=== PATIENT | male | born 1980 | race Hispanic/Latino ===

== ENCOUNTER → 2017-07-05 | Day surgery (SDC) | payer OTHER ==
[~2017-07-05] MED LIST: DICYCLOMINE HCL20 MG PO; FENTANYL CITRATE/PF 100MCG/2 ML INJ ONE; HYOSCYAMINE SULFATE 0.5 MG/ML AMP ONE; LIDOCAINE HCL 1% 2 ML AMP ONE; LIDOCAINE HCL 2% LOCAL INJ 5 ML SDV VIAL INJ ONE; METOPROLOL SUCC50 MG PO; MIDAZOLAM HCL 2 MG/2 ML VIAL ONE; OMEPRAZOLE40 MG; PROPOFOL IV EMULSION 10 MG/ML 50 ML VIAL ONE
[2017-07-05 13:59] LABS: WBC,FECAL (FECAL LACTOFERRIN) NEGATIVE (NEGATIVE)
[2017-07-05 14:59] LABS: C DIFFICILE TOXIN A&B AMP PROB NEGATIVE (NEGATIVE)
--- NOTE | 2017-07-05 19:47 | Operative Report ---
DATE OF PROCEDURE: July 05, 2017 REFERRING PHYSICIAN: Dr. Levy Arreaga. PROCEDURES PERFORMED 1. Esophagogastroduodenoscopy with biopsies. 2. Colonoscopy with polypectomy and biopsies. INDICATIONS FOR EGD: Heartburn, indigestion. History of melena. INDICATIONS FOR COLONOSCOPY: Chronic diarrhea. History of bright red blood per rectum. MEDICATION: Patient was done under MAC. Please see anesthesiologist's note. PROCEDURE: With the patient in the left lateral decubitus position, the flexible fiberoptic Olympus gastroscope was introduced into the esophagus under direct visualization without any difficulty. There was some patchy erythema noted in the distal esophagus. A minute nodule was noted at the GE junction, approximately 4 mm in size, and that was biopsied. The scope was then advanced with ease into the stomach, traversing a small sliding hiatal hernia. Mucosa overlying the antrum and the body revealed some patchy erythema and mild to moderate edema, and biopsies were obtained and sent to stain for H. pylori. The pylorus was of normal contour and shape. It was intubated with ease, and the scope was advanced all the way to the 2nd portion of the duodenum. The scope was then withdrawn slowly, and biopsies were obtained from the proximal 2nd portion to rule out sprue considering the patient's history of chronic diarrhea. Mucosa overlying the duodenal bulb appeared to be within normal limits. The scope was then withdrawn back into the stomach and retroflexed, and mucosa overlying the fundus and the cardia appeared to be within normal limits. The scope was then straightened out. The stomach was decompressed. Scope was subsequently withdrawn. Patient tolerated the procedure well. IMPRESSION 1. Distal esophagitis. 2. Nodule at gastroesophageal junction, biopsied. 3. Small sliding hiatal hernia. 4. Gastritis, biopsied. Biopsy sent to stain for H. pylori. 5. Rule out sprue. PLAN: Follow up histology. Increase Protonix to 40 mg 1 p.o. a.c. b.i.d. The patient was then turned around. After adequate lubrication of the anal canal, a flexible fiberoptic Olympus colonoscope was inserted into the rectum with ease and advanced all the way to the cecum. A minute polyp was noted in the cecum, and that was hot biopsied. Polypectomy site was hemoclipped. The ileocecal valve was intubated with ease, and the scope was advanced into the terminal ileum. Biopsies were obtained. The scope was then withdrawn slowly back into the colon and then pulled slowly. The ascending colon and transverse colon grossly appeared to be within normal limits. There were some patchy mild inflammatory changes noted in the left colon. Multiple random biopsies were obtained. A large pedunculated polyp was noted in the proximal sigmoid colon, and that was removed per snare electrocautery and the polypectomy site was prophylactically hemoclipped. One minute polyp was hot biopsied from the distal sigmoid colon. One polyp was hot biopsied from the rectum. The scope was then retroflexed into the distal rectum. Small internal hemorrhoids were noted, none of which was actively bleeding. The scope was then straightened out. The rectosigmoid area as well as the distal rectal area were decompressed. Scope was subsequently withdrawn after securing an adequate stool specimen that was sent for the appropriate stool studies. Patient tolerated the procedure well. IMPRESSION 1. Cecal polyp, hot biopsied. Polypectomy site hemoclipped. 2. Mild, patchy, left-sided colitis, random biopsies obtained. 3. Large pedunculated polyp, sigmoid colon, snared. Polypectomy site prophylactically hemoclipped. 4. Sigmoid colon polyp, minute, hot biopsied. 5. Rectal polyp, hot biopsied. 6. Internal hemorrhoids, none actively bleeding. PLAN: Follow up histology. Follow up stool studies. Initiate VSL #3 one p.o. b.i.d. Start Bentyl 20 mg 1 p.o. t.i.d. Timing of followup colonoscopy pending pathology report. Job#: [id number] cc:VIDA ARREAGA DO
== END | disposition home or self-care (01) ==
LOC: OR 09:08
PROVIDERS: ATTEND Internal Medicine Gastroenterology
DX: K29.70 Gastritis, unspecified, without bleeding (principal); D12.5 Benign neoplasm of sigmoid colon; K62.1 Rectal polyp; K51.50 Left sided colitis without complications; K31.89 Other diseases of stomach and duodenum; K21.0 Gastro-esophageal reflux disease with esophagitis; K44.9 Diaphragmatic hernia without obstruction or gangrene; A04.8 Other specified bacterial intestinal infections; K64.8 Other hemorrhoids; R63.4 Abnormal weight loss; R03.0 Elevated blood-pressure reading, without diagnosis of hypertension; G47.33 Obstructive sleep apnea (adult) (pediatric); Z01.810 Encounter for preprocedural cardiovascular examination; Z68.33 Body mass index [BMI] 33.0-33.9, adult
CPT/HCPCS: 43239; 45380; 45384; 45385; 83630; 83993; 87045; 87177; 87328; 87493; 93005; J1980; J2001 ×2; J2250; 45378